=== PATIENT | male | born 1965 | race American Indian/Alaskan Native ===

== ENCOUNTER 2021-04-01 07:01 | Day surgery (SDC) | payer OTHER ==
[2021-03-29 10:01] LABS: Basophils # (Auto) 0.1 K/mm3 (0.0-0.1); Basophils % (Auto) 2.1 % (0.0-1.8); Eosinophils # (Auto) 0.1 K/mm3 (0.0-0.4); Eosinophils % (Auto) 2.2 % (0.0-4.3); Hematocrit 41.8 % (35.5-45.6); Hemoglobin 14.4 gm/dl (11.8-15.2); Lymphocytes # (Auto) 2.4 K/mm3 (1.2-5.4); Lymphocytes % (Auto) 35.8 % (13.4-35.0); Mean Corpuscular HGB Conc 35 % (32-34); Mean Corpuscular Volume 92 fl (84-94); Monocytes # (Auto) 0.6 K/mm3 (0.0-0.8); Monocytes % (Auto) 8.4 % (0.0-7.3); Platelet Count 241 K/mm3 (140-440); Red Blood Count 4.53 M/mm3 (3.65-5.03); Red Cell Distribution Width 12.7 % (13.2-15.2)
[2021-03-29 10:11] LABS: BUN/Creatinine Ratio 18; Blood Urea Nitrogen 14 mg/dL (9-20); Calcium 9.3 mg/dL (8.4-10.2); Hemolysis Index 26
--- NOTE | 2021-03-29 10:28 | Anesthesia Consultation ---
Anesthesia Consult and Med Hx Date of service: 04/01/21 - Airway Anesthetic Teeth Evaluation: Good, Partials (upper and lower) ROM Head & Neck: Adequate Mental/Hyoid Distance: Adequate Mallampati Class: Class III Intubation Access Assessment: Possibly Difficult - Pulmonary Exam CTA: Yes - Cardiac Exam Cardiac Exam: RRR - Pre-Operative Health Status ASA Pre-Surgery Classification: ASA2 Proposed Anesthetic Plan: General, MAC - Pre-Anesthesia Comment Pre-Anesthesia Comments: GA vs MAC pending discussion with surgeon regarding extent of intended procedure. - Pulmonary Hx Smoking: Yes (quit 1 month ago) Hx Asthma: Yes (inhaler prn; usually 2-3x/wk) Hx Respiratory Symptoms: No - Cardiovascular System Hx Hypertension: Yes Hx Heart Attack/AMI: No Hx Percutaneous Transluminal Coronary Angioplasty (PTCA): No Hx Cardia Arrhythmia: No (preop EKG NSR) - Central Nervous System CVA: No Hx Back Pain: Yes - Endocrine Hx Renal Disease: No Hx Liver Disease: No Hx Insulin Dependent Diabetes: No Hx Non-Insulin Dependent Diabetes: No Hx Thyroid Disease: No - Other Systems Hx Obesity: No - Additional Comments Anesthesia Medical History Comments: No hx anesthetic complications.
--- NOTE | 2021-03-30 07:50 | XRay Report ---
CHEST 2 VIEWS INDICATION / CLINICAL INFORMATION: ASTHMA. Preoperative imaging. COMPARISON: None available. FINDINGS: SUPPORT DEVICES: None. HEART / MEDIASTINUM: No significant abnormality. LUNGS / PLEURA: No significant pulmonary abnormality. No significant pleural effusion. No pneumothora x. ADDITIONAL FINDINGS: No significant additional findings. IMPRESSION: 1. No acute abnormality of the chest. Signer Name: Femi Holloway MD Signed: 03/29/2021 11:57 AM Workstation Name: [id number]
--- NOTE | 2021-03-31 10:09 | Electrocardiograph Report ---
[facility] Test Date: 2021-03-29 Test Time: 09:55:04 Pat Name: ITZ MILLER Department: Room: Gender: M Lab Support Tech: DUNG : 1965 Requested By: GILLIAN VERAS Order Number: [id number] Reading MD: Sultana Mixon Measurements Intervals [place] Rate: 73 P: 72 [place]: 164 QRS: 75 QRSD: 88 T: 55 QT: 380 QTc: 420 Interpretive Statements Sinus rhythm No previous ECG available for comparison Electronically Signed On 03-31-2021 10:09:10 EST by Sultana Mixon
[~2021-04-01 07:01] MED LIST: ACETAMINOPHEN 500 MG TAB PO SCH; CELECOXIB 200 MG CAP PO NR; LACTATED RINGERS 1,000 ML IV SCH; MIDAZOLAM 2 MG/2 ML INJ IV NR; ceFAZolin/STERILE WATER 2 GM/20 ML SYRINGE IV NR
[2021-04-01] MEDS ORDERED: LIDOCAINE (1%) 10 MG/1 ML VIAL 20 ML MDV ONE (07:14)
[2021-04-01] MEDS ORDERED: BUPIVACAINE/PF (0.5%) 5 MG/1 ML 30 ML VIAL INFILTRATI ONE ×2 (07:14→08:37)
[2021-04-01] MEDS ORDERED: HYDROmorphone 1 MG/1 ML INJ ONE (07:20)
[2021-04-01] MEDS ORDERED: LIDOCAINE MPF (2%) 20 MG/1 ML VIAL 5 ML ONE (07:20)
[2021-04-01] MEDS ORDERED: propofoL 200 MG/20 ML VIAL IV ONE (07:20)
[2021-04-01] MEDS ORDERED: HYDROmorphone 1 MG/1 ML INJ IV PRN (07:31)
[2021-04-01] MEDS ORDERED: ONDANSETRON 4 MG/2 ML INJ IV PRN (07:31)
[2021-04-01] MEDS ORDERED: HYDROcodone/ACETAMINOPHEN 5-325 MG TAB PO PRN (07:31)
--- NOTE | 2021-04-01 07:31 | Anesthesia Day of Surgery ---
Anesthesia Day of Surgery - Day of Surgery Patient Examined: Yes Patient H&P Reviewed: Yes Patient is NPO: Yes
[2021-04-01] MEDS ORDERED: LIDOCAINE (1%) 10 MG/1 ML VIAL 20 ML MDV INFILTRATI ONE (08:38)
[2021-04-01] MEDS ORDERED: ONDANSETRON 4 MG/2 ML INJ ONE (08:52)
--- NOTE | 2021-04-01 10:26 | Operative Report ---
Operative Report Operative Report: Date of procedure: 04/01/2021 Preop diagnosis: Left breast lesion Postop diagnosis: Same Procedure: Excision biopsy of left breast lesion Surgeon: Dr. White Anesthesia: LMA general anesthesia Specimen: Left breast lesion with short stitch on the inferior margin and long stitch on the lateral margin Estimated blood loss: Minimal Findings: This is a 56-year-old male with a left breast lesion localized on ultrasound and mammogram. A minimally invasive biopsy as an outpatient was performed but was felt to be discordant with radiologic findings. Patient is taken to the OR and under LMA general anesthesia timeouts and consents are reviewed and are appropriately on the chart. The left chest is prepped with ChloraPrep and draped in a sterile fashion. A ellipse incision is made in the upper third of the left chest wall. Electrocautery was used to elevate flaps superiorly and inferiorly. Elect rocautery was used to dissect posteriorly until the deep pectoral fascia is visualized. Margins are labeled with a short stitch on the inferior margin and a long stitch on the lateral margin. The wound is irrigated with sterile water. Hemostasis is good. Breast tissue is dissected off the pectoral muscle to advance a flap to close the defect. The advancement flap covers the defect that is 12 x 15 cm in size (180 cm). The wound is closed with 2-0 Vicryl in layers to advance the subcutaneous tissue and the breast tissue and 4-0 Monocryl for the skin followed by Dermabond.
[2021-04-01 10:34] VITALS: BP 123/73
--- NOTE | 2021-04-01 13:18 | Post Anesthesia Evaluation ---
- Post Anesthesia Evaluation Patient Participated: Yes Airway Patent: Yes Stable Respiratory Function: Yes Nausea/Vomiting: No Temp > 96.8F: Yes Pain Manageable: Yes Adequeate Hydration: Yes Anesthesia Complications: No
== END 2021-04-01 10:30 | disposition home or self-care (01) ==
LOC: OR 07:01
PROVIDERS: ATTEND Surgery
DX: R22.2 Localized swelling, mass and lump, trunk (principal); L72.0 Epidermal cyst; I10 Essential (primary) hypertension; J45.909 Unspecified asthma, uncomplicated; Z20.822 Contact with and (suspected) exposure to COVID-19; Z79.899 Other long term (current) drug therapy; Z72.89 Other problems related to lifestyle; Z98.890 Other specified postprocedural states
CPT/HCPCS: 11406; 36415; 71046; 80048; 85025; 88304; 93005; 93010; J0690; J1170; J2250; J2405; J2704; J3490; J7120; U0003; 88307